=== PATIENT | female | born 1985 | race Asian ===

== ENCOUNTER 2016-04-09 07:40 | Emergency (ER) | payer BC, MEDICAID, OTHER ==
[2016-04-09] MEDS ORDERED: IOPAMIDOL 300 (61%) 100 ML VIAL IV ONE (07:41)
[2016-04-09 08:30] LABS: HCG,QUALITATIVE URINE NEGATIVE
--- NOTE | 2016-04-09 10:02 | RAD ---
EXAMINATION:CHEST - 2 VIEWS CLINICAL INDICATION: Chest pain for 4 days. COMPARISON:none FINDINGS: There is a soft tissue mass in the anterior superior mediastinum. This effaces the aortic arch and there is very prominent soft tissue in the azygos distribution as well. Heart size is normal. The leana appear symmetric currently. There is no pleural effusion. The lungs are clear. The osseous structures are unremarkable for age. IMPRESSION: Anterior superior mediastinal mass/lymphadenopathy. Contrast enhanced CT scan the chest should be considered.
[2016-04-09 11:52] LABS: ABSOLUTE NEUTROPHIL COUNT 8.9 K/mm3 (1.8-7.7); BASO # 0.1 K/mm3 (0.0-0.2); BASO % 0.4 % (0.2-1.0); EOS % 0.2 % (0.9-2.9); HEMATOCRIT 33.3 % (37.0-47.0); HEMOGLOBIN 10.1 gm/l (12.0-16.0); IMM NEUT # 0.1 K/mm3 (0-0.2); IMM NEUT% 0.7 % (0-1); LYMPH # 2.2 (1.0-4.8); LYMPH % 18.3 % (15-45); MEAN CELL VOLUME 77.3 fl (81.0-99.0); MEAN CORPUSCULAR HEMOGLOBIN 23.4 pg (27.0-31.0); MEAN CORPUSCULAR HGB CONC 30.3 g/dl (33.0-37.0); MEAN PLATELET VOLUME 8.7 fl (7.4-10.4); MONO # 0.8 (0.0-0.8); MONO % 6.8 % (4-12); NEUT % 73.6 % (43-75); PLATELET COUNT 505 K/mm3 (130-400); RED CELL DISTRIBUTION WIDTH 16.1 % (11.5-14.5)
[2016-04-09 12:11] LABS: ALB/GLOB RATIO 0.7 (>1.0); ALBUMIN 3.8 gm/dL (3.5-5.7); CALCIUM 9.4 mg/dL (8.6-10.3)
--- NOTE | 2016-04-09 12:40 | CT ---
EXAMINATION: CAT SCAN CHEST W/ CONTRAST CLINICAL INDICATION: Mediastinal mass demonstrated on chest radiograph. TECHNIQUE: Following uneventful administration of 80 ml of Isovue 300, intravenously, Helical axial images were acquired from just above the lung apices through the lung bases. 4 mm stacked images were reviewed in the sagittal, axial and coronal planes. COMPARISONS: Chest radiographs dated 04/09/2016. FINDINGS: Lungs: There is an ill-defined 9 mm nodule in the anterior aspect of the right upper lobe near the minor fissure on image #43. A smaller 3 mm nodule involves the right middle lobe distribution on image #49. The remainder of the lungs are clear. There is no consolidation. No pleural effusion is identified. Thoracic inlet: The trachea is midline. The thyroid gland is unremarkable. There is supraclavicular lymphadenopathy greater on the left. There are numerous enlarged lymph nodes with confluent adenopathy interposed between the jugular vein and carotid. It measures probably 4 cm in transverse by 1.7 cm and AP dimension. This appears contiguous and extends inferiorly into the left superior mediastinum. Shotty right-sided lymph nodes are noted. Mediastinum: There is an extensive mediastinal lymphadenopathy. In the left anterior superior mediastinum lateral and cephalad to the aortic arch there is soft tissue mass measures 4.7 x 4.3 x 5.0 cm in AP transverse and oblique cephalocaudad dimension. In the azygos distribution in the right mediastinum there is a 2.9 x 3.3 x 6.0 cm adenopathy. This causes slight displacement of the superior vena cava anteriorly. Subcarinal lymphadenopathy measures 3.8 x 4.0 x 2.0 cm in septal caudal transverse and AP dimension. Left hilar lymph node exhibits a short axis dimension of 1 cm. No right hilar adenopathy is identified. Aorta and great vessels: The aorta is unremarkable. Pulmonary arteries are well opacified. No emboli are identified. Heart :The cardiac size is normal. There are no vascular calcifications identified. Soft tissues and osseous structures: No axillary lymphadenopathy is appreciated. The overlying soft tissues are within normal limits. The osseous structures are intact. The visualized segments of the abdomen on this examination: The spleen exhibits heterogeneous enhancement. It is not grossly enlarged. The visualized segments of the liver are unremarkable. There is an encasing soft tissue mass not completely captured on this examination in the periaortic distribution measuring 3.6 in AP by 5.0 cm in transverse dimension. This causes displacement of the inferior vena cava anteriorly. IMPRESSION: 1. Extensive adenopathy involving the mediastinum, supraclavicular distributions, and aortocaval distribution within the visualized segments of the abdomen. There is involvement of the spleen and lung parenchyma as well. Findings are worrisome for neoplastic process such as lymphoma. Secondary less likely possibility would include sarcoidosis. 2. No osteolytic or blastic lesions are identified. No vascular compromise is currently detected. The findings were uploaded to the electronic medical record for review at approximately 12:39 PM 04/09/2016
== END 2016-04-09 14:36 | disposition home or self-care (01) ==
LOC: ED 07:40
DX: R19.09 Other intra-abdominal and pelvic swelling, mass and lump (principal); Z91.040 Latex allergy status
CPT/HCPCS: 81025; 85025; 80053; 71020; 71260; 99284 ×2; 93005; Q9967